=== PATIENT | female | born 1985 | race Caucasian/White ===

== ENCOUNTER 2023-10-09 17:20 | Emergency (ER) | payer MEDICAID, OTHER ==
[2023-10-09] MEDS ORDERED: Lidocaine 1% 10 ML MDV INJECT ONE (17:40)
== END 2023-10-09 18:25 | disposition home or self-care (01) ==
LOC: VM.ED 17:20
DX: S61.011A Laceration without foreign body of right thumb without damage to nail, initial encounter (principal); W26.8XXA Contact with other sharp object(s), not elsewhere classified, initial encounter
CPT/HCPCS: 12001; 99282; 99283; J3490